=== PATIENT | female | born 1950 | race Caucasian/White ===

== ENCOUNTER → 2021-06-25 | Day surgery (SDC) | payer MEDICARE, BC ==
[2021-06-25] MEDS: Brimonidine 0.2% Ophth Soln 5 ML Bottle EYELF SCH ×2 (10:09→10:58)
[2021-06-25] MEDS: Phenylephrine 2.5% Ophth Soln 2 ML Bot EYELF SCH ×2 (10:13→10:23)
[2021-06-25] MEDS: Tropicamide 1% Ophth Soln 15 ML Bottle EYELF SCH ×2 (10:18→10:27)
== END ==
LOC: JD.SDS 10:02
PROVIDERS: ATTEND Ophthalmology
DX: H26.493 Other secondary cataract, bilateral (principal); I10 Essential (primary) hypertension; Z96.1 Presence of intraocular lens